=== PATIENT | female | born 1975 | race Caucasian/White ===

== ENCOUNTER 2016-07-08 11:33 | Emergency (ER) | payer SELFPAY ==
[~2016-07-08] VITALS: Ht 162.6 cm; Wt 55.0 kg
[~2016-07-08 11:33] MED LIST: ALBU6.7H INH; METR-1 PO; ZITH250T PO
[2016-07-08 11:36] VITALS: BP 145/85; PULSE 84; RESP 14; TEMP 98.3; O2SAT 100
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
[2016-07-08] MEDS ORDERED: AMOX500C PO (13:42)
[2016-07-08] MEDS ORDERED: METR-1 PO (13:42)
[2016-07-08] MEDS ORDERED: ALBUAER3 INH (13:42)
[2016-07-08] MEDS ORDERED: MOME17I EACH NARE (13:42)
== END 2016-07-08 19:34 | disposition home or self-care (01) ==
LOC: NEPB 11:33
DX: N76.0 Acute vaginitis (principal); J01.90 Acute sinusitis, unspecified; J45.909 Unspecified asthma, uncomplicated; Z76.0 Encounter for issue of repeat prescription
CPT/HCPCS: 99283

== ENCOUNTER 2016-09-13 18:05 | Emergency (ER) | payer MEDICAID, OTHER ==
[~2016-09-13] VITALS: Ht 162.6 cm; Wt 56.0 kg
[~2016-09-13 18:05] MED LIST changes: +ALBUAER3 INH; +AMOX500C PO; +MOME17I EACH NARE
[2016-09-13 18:08] VITALS: BP 120/74; PULSE 104; RESP 20; TEMP 98.2; O2SAT 97
[2016-09-13] MEDS ORDERED: METR-1 PO (18:22)
[2016-09-13] MEDS ORDERED: BACT800T5 PO (18:22)
--- NOTE | 2016-09-13 18:25 | PD ---
HPI Chief Complaint: Skin Problem Time Seen by Provider: 18:22 Travel History International Travel<30 days: No Contact w/Intl Traveler<30days: No Traveled to known affect area: No History of Present Illness HPI Patient comes in complaining of possible infected bug bite on her abdomen that she first noticed 2 days ago. Patient states started off as small bump that exploded. Patient states she has been trying to keep it clean using soap and water as well as applying aucv-fya-zdfrtmd antibiotic ointment with little to no improvement of her symptoms. Patient states she had something similar in the past. States having some tenderness around the site without radiation. Denies any fevers, nausea, vomiting, or diarrhea. Patient also requesting a prescription for bacterial vaginosis. Patient states that she gets this frequently for approximately a week has been having whitish discharged. Patient states she is not sexually active and has not been for over 2 years and does not want tested for anything else. PFSH Past Medical History Asthma: Yes Neurologic: Yes (TIA in 2016) Reproductive: Yes (bacterial vaginosis) ?: Not Tubal Ligation: Yes Past Surgical History Section: Yes Social History Alcohol Use: Yes (occ) Tobacco Use: Yes (1/2 ppd) Substance Use: No Allergies-Medications (Allergen,Severity, Reaction): Coded Allergies: E-Mycin (Verified Allergy, Severe, Nausea/Vomiting, 01/03/15) Reported Meds & Prescriptions Reported Meds & Active Scripts Active Bactrim DS (Sulfamethoxazole-Trimethoprim) 800-160 Mg Tab 1 Tab PO BID Flagyl (Metronidazole) 500 Mg Tab 500 Mg PO BID 7 Days Review of Systems Except as stated in HPI: all other systems reviewed are Neg Physical Exam Narrative GENERAL: Well-developed, well nourished, in no acute distress, and non-ill appearing. SKIN: Focused skin assessment warm and dry. Erythematous lesion noted on her lower abdomen is mildly tender to palpation. There is no crepitus or drainage. HEAD: Atraumatic. Normocephalic. EYES: Pupils equal and round. EOMI. No scleral icterus. No injection or drainage. ENT: No nasal bleeding or discharge. Mucous membranes pink and moist. NECK: Trachea midline. Supple. No nuclear rigidity. RESPIRATORY: No accessory muscle use. No respiratory distress. GENITOURINARY: Patient refused. MUSCULOSKELETAL: No obvious deformities. No clubbing. No cyanosis. No edema. Full range of motion. NEUROLOGICAL: Awake and alert. No obvious cranial nerve deficits. Motor grossly within normal limits. Normal speech. PSYCHIATRIC: Appropriate mood and affect; insight and judgment normal. Data Data Last Documented VS Vital Signs Date Time Temp Pulse Resp B/P Pulse Ox O2 Delivery O2 Flow Rate FiO2 09/13/16 18:08 98.2 104 20 120/74 97 MDM Medical Decision Making Medical Screen Exam Complete: Yes Emergency Medical Condition: Yes Differential Diagnosis Abscess, cellulitis, wound infection, bacterial vaginosis, STD, other Narrative Course The patient has cellulitis. There is no evidence of necrotizing fasciitis/ [place] at this time, pain is proportional and no crepitus is noted. There is no evidence of abscess as well at this time. The patient will be discharged on antibiotics. The patient was given signs and symptoms warnings for worsening infection, such as spreading of redness, increasing pain, and/or swelling, associated heat, or fever and instructed to return immediately if these signs or symptoms worsen. The patient is to follow up with physician in 2 days for recheck or return here in 2 days for recheck if unable to establish outpatient follow up. Sooner if worsens or as needed. The patient agrees with plan. Patient in no obvious distress upon re-evaluation. Patient was asked if they wanted to speak to my attending, which the patient did not wish to do at this time. Any questions/concerns in reference to patient diagnosis/condition discussed and clarified prior to patient's discharge. Reinforced sheer importance of close follow up with patient's primary physician or primary care clinic. Instructed patient to return to ED immediately, if symptoms return/ worsen. Pt showed understanding of above instructions. Further instructions and recommendations were detailed in discharge paperwork. Pt ambulated without difficulty out of ED at discharge. Diagnosis Primary Impression: Cellulitis Qualified Code: L03.311 - Cellulitis of abdominal wall Additional Impression: Bacterial vaginosis Patient Instructions: Bacterial Vaginosis (ED), Cellulitis (ED), General Instructions Additional Instructions: Follow-up with your primary care physician or return here in 2 days for recheck. Take all medication as prescribed. Return to the emergency department if symptoms get worse. Med/Other Pt SpecificInfo: Prescription(s) given Scripts Sulfamethoxazole-Trimethoprim (Bactrim DS)800-160 Mg Tab1 Tab PO BID #20 TAB Ref 0 Prov:Jeff Calderon MD 09/13/16 Metronidazole (Flagyl)500 Mg Mos064 Mg PO BID 7 Days Ref 0 Prov:Jeff Calderon MD 09/13/16 Disposition: 01 DISCHARGE HOME Condition: Stable Bill Villafuerte Sep 13, 2016 18:25
== END 2016-09-13 18:49 | disposition home or self-care (01) ==
LOC: PHEFT 18:05
DX: L03.311 Cellulitis of abdominal wall (principal); N76.0 Acute vaginitis
CPT/HCPCS: 99282

== ENCOUNTER 2016-10-24 18:41 | Emergency (ER) | payer SELFPAY ==
[~2016-10-24] VITALS: Ht 162.6 cm; Wt 55.0 kg
[~2016-10-24 18:41] MED LIST changes: -ALBU6.7H INH; -ALBUAER3 INH; -AMOX500C PO; +BACT800T5 PO; -MOME17I EACH NARE; -ZITH250T PO
[2016-10-24 18:47] VITALS: BP 127/82; PULSE 92; RESP 18; O2SAT 98
[2016-10-24 18:51] VITALS: BP 119/78; PULSE 90; RESP 18; O2SAT 96
[2016-10-24] MEDS ORDERED: ASPI325T PO (18:59)
[2016-10-24] MEDS ORDERED: LEVE500 PO (18:59)
--- NOTE | 2016-10-24 19:31 | PD ---
HPI Chief Complaint: Numbness/Tingling Time Seen by Provider: 19:06 Travel History International Travel<30 days: No Contact w/Intl Traveler<30days: No History of Present Illness HPI 41-year-old female complains of headache, chest pain, abdominal pain, generalized malaise and weakness. Patient states that she has history of TIA in April 2016. Patient states that she has mild numbness and weakness of the left arm and left leg after the TIA. Patient states that she started having generalized malaise and weakness today and tingling sensation to the whole body since this afternoon. Patient states that she has aching headache frontal headache starting this afternoon patient denies any visual change. Patient denies any neck pain. Patient states that she had aching chest pain across anterior chest wall since this afternoon. Patient states that the chest pain is not associate with exertion. Patient denies any coughing congestion fever chills. Patient states that she has intermittent abdominal cramping with nausea vomiting diarrhea for months and is not new. Patient denies any chance of being . Patient status post tubal ligation. Patient states that she smokes marijuana occasionally. Patient states that she had 2 beers today. Patient denies any other illicit drug abuse. Patient states that she took some opioids yesterday. Patient denies any dysuria. Patient states that she has urinary frequency for the past 3 days. Patient denies any vaginal discharge or bleeding. Patient denies any back pain. Patient states that she is on Keppra. Patient also complains of vaginal discharge for the past month. Patient denies any pelvic pain. PFSH Past Medical History Asthma: Yes Cerebrovascular Accident: Yes (MAY 09, 2017) Diminished Hearing: No Neurologic: Yes (TIA in 2015) Reproductive: Yes (bacterial vaginosis) Tetanus Vaccination: < 5 Years Influenza Vaccination: No ?: Not LMP: September : 7 Para: 3 Miscarriage: 2 : 2 Tubal Ligation: Yes Past Surgical History Abdominal Surgery: Yes (GALLBLADDER REMOVAL ) Section: Yes Social History Alcohol Use: Yes (2 BEERS TODAY) Tobacco Use: Yes (1 PPD) Substance Use: Yes (CANNABIS) Allergies-Medications (Allergen,Severity, Reaction): Coded Allergies: E-Mycin (Verified Allergy, Severe, Nausea/Vomiting, 01/03/15) Reported Meds & Prescriptions Reported Meds & Active Scripts Active Potassium Chloride ER (Potassium Chloride) 10 Meq Cap 10 Meq PO DAILY Reported Aspirin 325 Mg Tab 325 Mg PO BID Keppra (Levetiracetam) 500 Mg Tab 500 Mg PO BID Review of Systems General / Constitutional: No: Fever Eyes: No: Visual changes HENT: Positive: Headaches Cardiovascular: Positive: Chest Pain or Discomfort Respiratory: No: Shortness of Breath Gastrointestinal: Positive: Nausea, Vomiting, Diarrhea, Abdominal Pain Genitourinary: No: Dysuria Musculoskeletal: No: Pain Skin: No Rash Neurologic: No: Weakness Psychiatric: No: Depression Endocrine: No: Polydipsia Hematologic/Lymphatic: No: Easy Bruising Physical Exam Narrative GENERAL: Well-nourished, well-developed patient. SKIN: Focused skin assessment warm/dry. HEAD: Normocephalic. EYES: No scleral icterus. No injection or drainage. Pupil constricted and reactive. NECK: Supple, trachea midline. No JVD or lymphadenopathy. CARDIOVASCULAR: Regular rate and rhythm without murmurs, gallops, or rubs. RESPIRATORY: Breath sounds equal bilaterally. No accessory muscle use. GASTROINTESTINAL: Abdomen soft, non-tender, nondistended. MUSCULOSKELETAL: No cyanosis, or edema. BACK: Nontender without obvious deformity. No CVA tenderness. Neurologic exam: Patient is awake and alert oriented 3. Patient has generalized weakness however no focal neurological deficit. Deep tendon reflexes 2+ and equal. Negative Babinski. THEATRE INSTRUCTOR exam: Patient has no discharge in the vaginal vault. Foreign body typical of some type of paper was in the vaginal vault was removed with the fingers. No cervical motion tenderness. Uterus not enlarged and nontender on palpation. No neck masses tenderness. Data Data Last Documented VS Vital Signs Date Time Temp Pulse Resp B/P Pulse Ox O2 Delivery O2 Flow Rate FiO2 10/24/16 21:05 80 16 130/76 99 Orders Electrocardiogram (10/24/16 19:25) Complete Blood Count With Diff (10/24/16 19:25) Comprehensive Metabolic Panel (10/24/16 19:25) Creatine Kinase (Cpk) (10/24/16 19:25) Troponin I (10/24/16 19:25) Prothrombin Time / Inr (Pt) (10/24/16 19:25) Act Partial Throm Time (Ptt) (10/24/16 19:25) Urinalysis - C+S If Indicated (10/24/16 19:25) Thyroid Stimulating Hormone (10/24/16 19:25) Chest, Single Ap (10/24/16 19:25) Ct Brain W/O Iv Contrast(Rout) (10/24/16 19:25) Iv Access Insert/Monitor (10/24/16 19:25) Ecg Monitoring (10/24/16 19:25) Oximetry (10/24/16 19:25) Drug Screen, Random Urine (10/24/16 19:25) Alcohol (Ethanol) (10/24/16 19:25) Gc And Chlamydia Pcr (10/24/16 20:37) Wet Prep Profile (10/24/16 20:37) Potassium Chloride (Kcl) (10/24/16 21:00) Labs Laboratory Tests Test 10/24/16 10/24/16 10/24/16 19:00 20:29 20:30 White Blood Count 8.2 TH/MM3 Red Blood Count 4.28 MIL/MM3 Hemoglobin 12.8 GM/DL Hematocrit 37.2 % Mean Corpuscular Volume 86.9 FL Mean Corpuscular Hemoglobin 29.9 PG Mean Corpuscular Hemoglobin 34.4 % Concent Red Cell Distribution Width 12.9 % Platelet Count 350 TH/MM3 Mean Platelet Volume 9.4 FL Neutrophils (%) (Auto) 58.8 % Lymphocytes (%) (Auto) 29.8 % Monocytes (%) (Auto) 9.9 % Eosinophils (%) (Auto) 1.1 % Basophils (%) (Auto) 0.4 % Neutrophils # (Auto) 4.8 TH/MM3 Lymphocytes # (Auto) 2.4 TH/MM3 Monocytes # (Auto) 0.8 TH/MM3 Eosinophils # (Auto) 0.1 TH/MM3 Basophils # (Auto) 0.0 TH/MM3 CBC Comment DIFF FINAL Differential Comment Prothrombin Time 10.3 SEC Prothromb Time International 0.9 RATIO Ratio Activated Partial 30.5 SEC Thromboplast Time Sodium Level 141 MEQ/L Potassium Level 3.0 MEQ/L Chloride Level 106 MEQ/L Carbon Dioxide Level 26.7 MEQ/L Anion Gap 8 MEQ/L Blood Urea Nitrogen 8 MG/DL Creatinine 0.56 MG/DL Estimat Glomerular Filtration 120 ML/MIN Rate Random Glucose 101 MG/DL Calcium Level 8.6 MG/DL Total Bilirubin 0.7 MG/DL Aspartate Amino Transf 534 U/L (AST/SGOT) Alanine Aminotransferase 206 U/L (ALT/SGPT) Alkaline Phosphatase 355 U/L Total Creatine Kinase 70 U/L Troponin I LESS THAN 0.02 NG/ML Total Protein 6.8 GM/DL Albumin 3.3 GM/DL Thyroid Stimulating Hormone 1.460 uIU/ML 3rd Gen Ethyl Alcohol Level 33 MG/DL Urine Color YELLOW Urine Turbidity CLEAR Urine pH 5.5 Urine Specific [place] 1.027 Urine Protein TRACE mg/dL Urine Glucose (UA) NEG mg/dL Urine Ketones NEG mg/dL Urine Occult Blood NEG Urine Nitrite NEG Urine Bilirubin SMALL Urine Urobilinogen 2.0 MG/DL Urine Leukocyte Esterase TRACE Urine RBC 1 /hpf Urine WBC 4 /hpf Urine Squamous Epithelial 3 /hpf Cells Urine Mucus FEW /lpf Microscopic Urinalysis Comment CULT NOT INDICATED Urine Opiates Screen POS Urine Barbiturates Screen NEG Urine Amphetamines Screen POS Urine Benzodiazepines Screen NEG Urine Cocaine Screen NEG Urine Cannabinoids Screen POS Clue Cells (Wet Prep) NONE SEEN Vaginal Trichomonas (Wet Prep) NONE SEEN Vaginal Yeast (Wet Prep) NONE SEEN MDM Medical Decision Making Medical Screen Exam Complete: Yes Emergency Medical Condition: Yes Interpretation(s) Last Impressions Head CT 10/24/161924 Signed Impressions: Service Date/Time: Monday, October 24, 2016 19:40 - CONCLUSION: Normal examination. Omid Albert Jr., MD Chest X-Ray 10/24/161924 Signed Impressions: Service Date/Time: Monday, October 24, 2016 20:01 - CONCLUSION: Normal examination. Omid Albert Jr., MD 2035 PM. CBC within normal limit. Potassium 3.0. AST 534. ALT 206. Alkaline phosphatase 355. Cardiac enzymes are normal. Alcohol 33. 2056 PM. UA is negative. Drug screen positive for opiates, amphetamines and marijuana. Wet prep negative. Differential Diagnosis Differential diagnosis including migraine headache, tension headache, cluster headache, dehydration, electrolyte imbalance, angina, HI, PE, pneumothorax, TIA , CVA. Narrative Course 41-year-old female with headache, chest pain, generalized malaise and weakness. Normal saline solution 1 25 cc an hour.KCL 40 mEq by mouth given. Diagnosis Primary Impression: Atypical chest pain Additional Impressions: Substance abuse Hypokalemia Patient Instructions: General Instructions Additional Instructions: Take potassium as directed. Follow-up local physician. Advised [facility] for substance abuse. Return if persistent problem or worse. Med/Other Pt SpecificInfo: Prescription(s) given Scripts Potassium Chloride ER 10 Meq Cap10 Meq PO DAILY #5 CAP Ref 0 Prov:Surjit Anton MD 10/24/16 Disposition: 01 DISCHARGE HOME Condition: Stable Surjit Anton MD Oct 24, 2016 19:30
--- NOTE | 2016-10-24 19:49 | RADRPT ---
EXAM DATE/TIME: 10/24/2016 19:40 [facility] COMPARISON: No previous studies available for comparison. INDICATIONS : Headaches with weakness. RADIATION DOSE: 47.58 CTDIvol (mGy) MEDICAL HISTORY : Cerebrovascular disease. SURGICAL HISTORY : Cholecystectomy. ENCOUNTER: Initial ACUITY: 1 day PAIN SCALE: 6/10 LOCATION: cranial TECHNIQUE: Multiple contiguous axial images were obtained of the head. Using automated exposure control and adj ustment of the mA and/or kV according to patient size, radiation dose was kept as low as reasonably a chievable to obtain optimal diagnostic quality images. FINDINGS: CEREBRUM: The ventricles are normal for age. No evidence of midline shift, mass lesion, hemorrhage or acute in farction. No extra-axial fluid collections are seen. POSTERIOR FOSSA: The cerebellum and brainstem are intact. The 4th ventricle is midline. The cerebellopontine angle i s unremarkable. EXTRACRANIAL: The visualized portion of the orbits is intact. SKULL: The calvaria is intact. No evidence of skull fracture. CONCLUSION: Normal examination. Omid Albert Jr., MD on October 24, 2016 at 19:47 Board Certified Radiologist. This report was verified electronically.
[2016-10-24 20:00] LABS: AUTOMATED NEUTROPHIL # 4.8 TH/MM3 (1.8-7.7); BASOPHIL % 0.4 % (0.0-2.0); EOSINOPHIL # 0.1 TH/MM3 (0-0.4); EOSINOPHIL % 1.1 % (0.0-4.0); HEMATOCRIT 37.2 % (35.0-46.0); HEMO FLAGS DIFF FINAL; LYMPH % 29.8 % (9.0-44.0); LYMPHOCYTE # 2.4 TH/MM3 (1.0-4.8); MEAN CELL VOLUME 86.9 FL (80.0-100.0); MEAN CORPUSCULAR HEMOGLOBIN 29.9 PG (27.0-34.0); MEAN CORPUSCULAR HGB CONC 34.4 % (32.0-36.0); MONO % 9.9 % (0.0-8.0); NEUT % 58.8 % (16.0-70.0); PLATELET COUNT 350 TH/MM3 (150-450); RED BLOOD COUNT 4.28 MIL/MM3 (4.00-5.30); RED CELL DISTRIBUTION WIDTH 12.9 % (11.6-17.2); WHITE BLOOD COUNT 8.2 TH/MM3 (4.0-11.0)
[2016-10-24 20:06] LABS: APTT (PATIENT) 30.5 SEC (24.3-30.1); INTERNATIONAL NORMALIZED RATIO 0.9 RATIO; PROTHROMBIN TIME - PATIENT 10.3 SEC (9.8-11.6)
[2016-10-24 20:19] LABS: ANION GAP 8 MEQ/L (5-15); AST (GOT) 534 U/L (15-37); BICARBONATE 26.7 MEQ/L (21.0-32.0); BLOOD UREA NITROGEN 8 MG/DL (7-18); CHLORIDE 106 MEQ/L (98-107); GLOMERULAR FILTRATION RATE 120 ML/MIN (>89); SODIUM (NA) 141 MEQ/L (136-145)
[2016-10-24 20:20] LABS: ALT (GPT) 206 U/L (10-53)
--- NOTE | 2016-10-24 20:22 | RADRPT ---
EXAM DATE/TIME: 10/24/2016 20:01 [facility] COMPARISON: No previous studies available for comparison. INDICATIONS : Shortness of breath, blower chest pain, lightheaded, dizziness, and nausea. MEDICAL HISTORY : Chronic obstructive pulmonary disease. SURGICAL HISTORY : None. ENCOUNTER: Initial ACUITY: 1 day PAIN SCORE: 3/10 LOCATION: Bilateral lower chest FINDINGS: A single view of the chest demonstrates the lungs to be symmetrically aerated without evidence of mas s, infiltrate or effusion. The cardiomediastinal contours are unremarkable. Osseous structures are intact. CONCLUSION: Normal examination. Omid Albert Jr., MD on October 24, 2016 at 20:20 Board Certified Radiologist. This report was verified electronically.
[2016-10-24 20:30] LABS: ALKALINE PHOSPHATASE 355 U/L (45-117); TOTAL BILIRUBIN ADULT 0.7 MG/DL (0.2-1.0)
[2016-10-24 20:34] LABS: CREATINE KINASE 70 U/L (26-192)
[2016-10-24 20:45] LABS: BLOOD, URINE NEG (NEG); COMMENT (UR) CULT NOT INDICATED; CULTURE IF INDICATED CULT NOT INDICATED; GLUCOSE,URINE NEG (NEG); KETONE, URINE NEG (NEG); MUCUS URINE FEW /lpf (OCC); NITRITE,URINE NEG (NEG); PH, URINE 5.5 (5.0-8.5); SQUAMOUS EPITHELIAL CELL URINE 3 /hpf (0-5); URINE COLOR YELLOW (YELLW/STRAW)
[2016-10-24 20:50] LABS: AMPHETAMINE, URINE POS (NEG); BARBITURATES, URINE NEG (NEG); COCAINE, URINE NEG (NEG)
[2016-10-24] MEDS ORDERED: POTASSIUM CHLORIDE 20 MEQ CONTROLLED RELEASE TAB PO ONE (21:00)
[2016-10-24 21:05] VITALS: BP 130/76
[2016-10-24] MEDS ORDERED: POTA10CA PO (21:09)
[2016-10-24 22:52] LABS: CHLAMYDIA PCR NOT DETECTED (NOT DETECT); NEISSERIA PCR NOT DETECTED (NOT DETECT)
--- NOTE | 2016-10-25 14:02 | EKG ---
Date Performed: 10/24/2016 Time Performed: 20:20:06 PTAGE: 41 years EKG: Sinus rhythm WITH SINUS ARRHYTHMIA NONSPECIFIC T-WAVE ABNORMALITY BORDERLINE ECG NO PREVIOUS TRACING DOCTOR: Nithin Calloway Interpretating Date/Time 10/25/2016 14:01:12
== END 2016-10-24 21:22 | disposition home or self-care (01) ==
LOC: NEPE 18:41
DX: R07.89 Other chest pain (principal); F19.10 Other psychoactive substance abuse, uncomplicated; E87.6 Hypokalemia; R51 Headache; R53.1 Weakness; Z72.0 Tobacco use; J45.909 Unspecified asthma, uncomplicated; R94.31 Abnormal electrocardiogram [ECG] [EKG]
CPT/HCPCS: 70450; 71010; 80053; 80307; 81001; 82550; 84443; 84484; 85025; 85610; 85730; 87210; 87491; 87591; 93005

== ENCOUNTER 2017-02-22 04:44 | Emergency (ER) | payer SELFPAY ==
[~2017-02-22 04:44] MED LIST changes: +ASPI325T PO; -BACT800T5 PO; +LEVE500 PO; -METR-1 PO; +POTA10CA PO
== END 2017-02-22 04:48 | disposition left against medical advice (07) ==
LOC: NED 04:44
DX: T14.90XA Injury, unspecified, initial encounter (principal); Y09 Assault by unspecified means
CPT/HCPCS: 99281

== ENCOUNTER 2017-07-15 19:37 | Emergency (ER) | payer OTHER ==
[~2017-07-15 19:37] MED LIST changes: +ASPI-183 PO; -ASPI325T PO
[2017-07-15 19:44] VITALS: BP 133/86; PULSE 89; RESP 18; TEMP 97.9; O2SAT 97
--- NOTE | 2017-07-15 20:51 | PD ---
HPI Chief Complaint: Medical Clearance Time Seen by Provider: 19:43 Travel History International Travel<30 days: No Contact w/Intl Traveler<30days: No Traveled to known affect area: No History of Present Illness HPI Patient is a 42-year-old female who is very tearful agitated complaining that she was roughed up by the police she is in custody for an unknown reason to this M.D. Patient is here she is refusing to be seen by the nurse she is refusing to give urine she is refusing to give blood she is insisting she needs to know she still after the rough up she took from the police. I come into the room to put an ultrasound of her abdomen she is uncooperative she refuses to give blood her urine I am able to see only partially of her uterus with a transabdominal there is thickened endometrium but I see no intrauterine . She refuses all treatment I see there is no indication for her to be wrapped in the ER I discharge her and please custody discharged home PFSH Past Medical History Asthma: Yes Cerebrovascular Accident: Yes (MAY 09, 2017) Diminished Hearing: No Neurologic: Yes (TIA in 2016) Reproductive: Yes (bacterial vaginosis) ?: : 7 Para: 3 Miscarriage: 2 : 2 Tubal Ligation: Yes Past Surgical History Abdominal Surgery: Yes (GALLBLADDER REMOVAL ) Section: Yes Social History Alcohol Use: No Tobacco Use: Yes (1 PPD) Substance Use: Yes (CANNABIS) Allergies-Medications (Allergen,Severity, Reaction): Coded Allergies: erythromycin base (Unverified Allergy, Severe, Nausea/Vomiting, 07/15/17) Reported Meds & Prescriptions Reported Meds & Active Scripts Active Potassium Chloride ER (Potassium Chloride) 10 Meq Cap 10 Meq PO DAILY Reported Aspirin 325 Mg Tab 325 Mg PO BID Keppra (Levetiracetam) 500 Mg Tab 500 Mg PO BID Review of Systems ROS Limitations: Uncooperative Physical Exam Narrative GENERAL: Patient is agitated redirectable but then says screaming is refusing to cooperate with the nurse she isn't offering police and she is handcuffed to the bed SKIN: Warm and dry. HEAD: Atraumatic. Normocephalic. EYES: Pupils equal and round. No scleral icterus. No injection or drainage. Mascara running down her eyes bilaterally no signs of trauma ENT: No nasal bleeding or discharge. Mucous membranes pink and moist. NECK: Trachea midline. No JVD. CARDIOVASCULAR: Regular rate and rhythm. RESPIRATORY: No accessory muscle use. Clear to auscultation. Breath sounds equal bilaterally. GASTROINTESTINAL: Abdomen soft, non-tender, nondistended. Hepatic and splenic margins not palpable. No sign of trauma MUSCULOSKELETAL: Extremities no signs of trauma without clubbing, cyanosis, or edema. No obvious deformities. NEUROLOGICAL: Awake and alert. No obvious cranial nerve deficits. Motor grossly within normal limits. Five out of 5 muscle strength in the arms and legs. Normal speech. PSYCHIATRIC: Agitated screaming then cooperative and screaming patient refusing to cooperate tearful asking for the hospital sander operator Data Data Last Documented VS Vital Signs Date Time Temp Pulse Resp B/P (MAP) Pulse Ox O2 Delivery O2 Flow Rate FiO2 07/15/17 19:44 97.9 89 18 133/86 (102) 97 Orders MDM Medical Decision Making Medical Screen Exam Complete: Yes Emergency Medical Condition: Yes Differential Diagnosis Abdominal pain versus malingering versus trying to avoid being processed by the police versus early IUP versus UTI patient refusing to cooperate with any of the tests to investigate her complaints Narrative Course Patient's endometrium and looks thickened on a transabdominal ultrasound however she is uncooperative with a full exam and she refuses urine or blood to see if she is I see there is no indication of severe injury or bruises to her body she is discharge in police custody refusing to give urine versus using to get blood I'm unable to check if she is and I do not see any signs of trauma discharged into police custody Diagnosis Primary Impression: Agitation Disposition: [address] LAW ENFORCEMNT Condition: Stable Chad Miranda MD Jul 15, 2017 20:51
== END 2017-07-15 21:44 ==
LOC: NEPE 19:37
DX: R45.1 Restlessness and agitation (principal); J45.909 Unspecified asthma, uncomplicated; Z86.73 Personal history of transient ischemic attack (TIA), and cerebral infarction without residual deficits; F17.200 Nicotine dependence, unspecified, uncomplicated; F12.90 Cannabis use, unspecified, uncomplicated
CPT/HCPCS: 99281